=== PATIENT | male | born 1970 | race Caucasian/White ===

== ENCOUNTER 2017-04-23 15:33 | Emergency (ER) | payer SELFPAY ==
[~2017-04-23] VITALS: Ht 177.8 cm; Wt 83.2 kg
[~2017-04-23 15:33] MED LIST: NO HOME MEDS; PRILOSEC20 MG PO
[2017-04-23 16:21] VITALS: BP 130/88
== END 2017-04-23 15:56 | disposition left against medical advice (07) | DRG 607 ==
LOC: ED 15:33
DX: L98.9 Disorder of the skin and subcutaneous tissue, unspecified (principal); F17.210 Nicotine dependence, cigarettes, uncomplicated; Z91.19 Patient's noncompliance with other medical treatment and regimen

== ENCOUNTER 2018-05-09 22:03 | Emergency (ER) | payer SELFPAY ==
[~2018-05-09] VITALS: Ht 177.8 cm; Wt 86.0 kg
[2018-05-09] MEDS ORDERED: CEPHALEXIN500 M1 PO (23:16)
[2018-05-09] MEDS ORDERED: BACTRIM DS1 TAB PO (23:16)
[2018-05-10 00:10] VITALS: BP 145/99
== END 2018-05-10 00:10 | disposition home or self-care (01) | DRG 605 ==
LOC: ED 22:03
DX: S61.204A Unspecified open wound of right ring finger without damage to nail, initial encounter (principal); L08.9 Local infection of the skin and subcutaneous tissue, unspecified; B95.62 Methicillin resistant Staphylococcus aureus infection as the cause of diseases classified elsewhere; W26.8XXA Contact with other sharp object(s), not elsewhere classified, initial encounter; Y93.89 Activity, other specified; Y92.89 Other specified places as the place of occurrence of the external cause; F17.220 Nicotine dependence, chewing tobacco, uncomplicated

== ENCOUNTER 2018-05-10 20:44 | Emergency (ER) | payer SELFPAY ==
[~2018-05-10] VITALS: Ht 177.8 cm; Wt 86.3 kg
[~2018-05-10 20:44] MED LIST changes: +BACTRIM DS1 TAB PO; +CEPHALEXIN500 M1 PO
[2018-05-10 21:10] VITALS: BP 152/84
== END 2018-05-10 21:10 | disposition home or self-care (01) | DRG 950 ==
LOC: ED 20:44
DX: S61.234D Puncture wound without foreign body of right ring finger without damage to nail, subsequent encounter (principal); I10 Essential (primary) hypertension; W26.8XXD Contact with other sharp object(s), not elsewhere classified, subsequent encounter

== ENCOUNTER 2018-11-26 09:13 | Emergency (ER) | payer SELFPAY ==
[~2018-11-26] VITALS: Ht 175.3 cm; Wt 84.0 kg
[2018-11-26] MEDS ORDERED: CEPHALEXIN500 M1 PO (09:37)
[2018-11-26] MEDS ORDERED: BACTRIM DS1 TAB PO (09:37)
[2018-11-26 09:47] VITALS: BP 158/98
== END 2018-11-26 09:55 | disposition home or self-care (01) | DRG 603 ==
LOC: ED 09:13
DX: L03.115 Cellulitis of right lower limb (principal); I10 Essential (primary) hypertension

== ENCOUNTER 2018-12-08 10:12 | Emergency (ER) | payer SELFPAY ==
[~2018-12-08] VITALS: Ht 175.3 cm; Wt 90.0 kg
[2018-12-08 11:55] LABS: HEMATOCRIT 45.7 % (39.0-50.0); HEMOGLOBIN 15.3 g/dl (14.0-18.0); IMMATURE GRANULOCYTES 0.3 % (0.0-5.0); MEAN CELL VOLUME 93.5 fL CALC (80.0-100.0); MEAN CORPUSCULAR HGB 31.3 pG CALC (26.0-32.0); MEAN CORPUSCULAR HGB CONC 33.5 g/L CALC (32.0-36.0); NEUT# 4.91 thou/uL (1.82-7.42); RED BLOOD COUNT 4.89 mill/uL (4.70-6.10); RED CELL DISTRI WIDTH 13.3 % (11.5-15.5)
[2018-12-08 12:16] LABS: ALBUMIN 4.8 g/dL (3.2-5.0); ALKALINE PHOSPHATASE 96 u/l (38-126); ANION GAP 15 (6-22 (CALC)); BILIRUBIN, TOTAL 0.8 mg/dL (0.0-1.4); BUN 10 mg/dL (9-20); BUN/CREATININE RATIO 14 (12-20 (CALC)); CARBON DIOXIDE 28 mmol/l (22-30); CHLORIDE 99 mmol/l (95-108); CREATININE 0.7 mg/dL (0.7-1.3); GFR > 60 ML/MIN (>=60 (CALC)); GFR FOR AFR.AMER. > 60 ML/MIN (>=60 (CALC)); POTASSIUM 4.1 mmol/l (3.5-5.1); SGOT/AST 37 u/l (17-59); SODIUM 138 mmol/l (137-146); TOTAL PROTEIN 8.8 g/dL (6.3-8.2)
[2018-12-08] MEDS ORDERED: CLEOCIN300 MG PO (13:22)
[2018-12-08 13:29] VITALS: BP 155/85
[2018-12-09] MEDS ORDERED: HYDROCO/APAP1 TA9 PO (09:00)
== END 2018-12-08 13:40 | disposition home or self-care (01) | DRG 603 ==
LOC: ED 10:12
PROC: 0H9MXZZ Drainage of Right Foot Skin, External Approach (ICD-10-PCS; principal; 2018-12-08)
DX: L02.611 Cutaneous abscess of right foot (principal); I10 Essential (primary) hypertension

== ENCOUNTER 2018-12-09 08:25 | Emergency (ER) | payer SELFPAY ==
[~2018-12-09] VITALS: Ht 175.3 cm; Wt 75.0 kg
[2018-12-09 08:25] VITALS: BP 155/105
[~2018-12-09 08:25] MED LIST changes: +CLEOCIN300 MG PO
[2018-12-09] MEDS ORDERED: HYDROCO/APAP1 TA9 PO (09:00)
== END 2018-12-09 09:10 | disposition home or self-care (01) | DRG 951 ==
LOC: ED 08:25
DX: Z48.01 Encounter for change or removal of surgical wound dressing (principal); I10 Essential (primary) hypertension

== ENCOUNTER 2019-02-24 23:41 | Emergency (ER) | payer SELFPAY ==
[~2019-02-24] VITALS: Ht 175.3 cm; Wt 86.4 kg
[~2019-02-24 23:41] MED LIST changes: +HYDROCO/APAP1 TA9 PO
[2019-02-25 00:42] LABS: HEMATOCRIT 45.6 % (39.0-50.0); HEMOGLOBIN 15.5 g/dl (14.0-18.0); IMMATURE GRANULOCYTES 0.2 % (0.0-5.0); MEAN CELL VOLUME 95.2 fL CALC (80.0-100.0); MEAN CORPUSCULAR HGB 32.4 pG CALC (26.0-32.0); NEUT# 3.07 thou/uL (1.82-7.42); RED BLOOD COUNT 4.79 mill/uL (4.70-6.10); RED CELL DISTRI WIDTH 14.5 % (11.5-15.5)
[2019-02-25 01:05] LABS: ALBUMIN 4.3 g/dL (3.2-5.0); ALKALINE PHOSPHATASE 113 u/l (38-126); ANION GAP 15 (6-22 (CALC)); BILIRUBIN, TOTAL 0.7 mg/dL (0.0-1.4); BUN 7 mg/dL (9-20); BUN/CREATININE RATIO 12 (12-20 (CALC)); CARBON DIOXIDE 26 mmol/l (22-30); CHLORIDE 103 mmol/l (95-108); CREATININE 0.6 mg/dL (0.7-1.3); GFR > 60 ML/MIN (>=60 (CALC)); GFR FOR AFR.AMER. > 60 ML/MIN (>=60 (CALC)); POTASSIUM 4.2 mmol/l (3.5-5.1); SGOT/AST 42 u/l (17-59); SODIUM 140 mmol/l (137-146); TOTAL PROTEIN 8.2 g/dL (6.3-8.2)
[2019-02-25] MEDS ORDERED: PREDNISONE50 MG PO (02:30)
[2019-02-25] MEDS ORDERED: VENTOLIN HFA IN (02:30)
[2019-02-25 03:25] VITALS: BP 135/71
== END 2019-02-25 03:25 | disposition home or self-care (01) | DRG 203 ==
LOC: ED 23:41
PROVIDERS: Family Medicine
DX: J20.9 Acute bronchitis, unspecified (principal); I10 Essential (primary) hypertension; F17.290 Nicotine dependence, other tobacco product, uncomplicated

== ENCOUNTER 2020-02-19 13:44 | Emergency (ER) | payer SELFPAY ==
[~2020-02-19] VITALS: Ht 175.3 cm; Wt 86.5 kg
[~2020-02-19 13:44] MED LIST changes: +PREDNISONE50 MG PO; +VENTOLIN HFA IN
[2020-02-19] MEDS ORDERED: BACTROBAN TOP (15:49)
[2020-02-19] MEDS ORDERED: KEFLEX500 M1 PO (15:49)
[2020-02-19 16:00] VITALS: BP 153/94
== END 2020-02-19 16:00 | disposition home or self-care (01) | DRG 603 ==
LOC: ED 13:44
DX: L03.115 Cellulitis of right lower limb (principal); I10 Essential (primary) hypertension; F17.290 Nicotine dependence, other tobacco product, uncomplicated

== ENCOUNTER 2020-08-28 11:03 | Emergency (ER) | payer SELFPAY ==
[~2020-08-28] VITALS: Ht 175.3 cm; Wt 95.0 kg
[~2020-08-28 11:03] MED LIST changes: +BACTROBAN TOP; +KEFLEX500 M1 PO
[2020-08-28] MEDS ORDERED: CLINDAMYCIN300 M1 PO (11:31)
[2020-08-28 11:40] VITALS: BP 176/108
== END 2020-08-28 12:07 | disposition home or self-care (01) | DRG 159 ==
LOC: ED 11:03
PROC: 0CJY3ZZ Inspection of Mouth and Throat, Percutaneous Approach (ICD-10-PCS; principal; 2020-08-28)
DX: K04.7 Periapical abscess without sinus (principal); I10 Essential (primary) hypertension; F17.290 Nicotine dependence, other tobacco product, uncomplicated

== ENCOUNTER 2021-04-08 13:02 | Emergency (ER) | payer SELFPAY ==
[~2021-04-08] VITALS: Ht 175.3 cm; Wt 86.0 kg
[~2021-04-08 13:02] MED LIST changes: +CLINDAMYCIN300 M1 PO
[2021-04-08 13:45] LABS: HEMATOCRIT 49.3 % (39.0-50.0); HEMOGLOBIN 16.3 g/dl (14.0-18.0); IMMATURE GRANULOCYTES 0.2 % (0.0-5.0); MEAN CELL VOLUME 95.2 fL CALC (80.0-100.0); MEAN CORPUSCULAR HGB 31.5 pG CALC (26.0-32.0); MEAN CORPUSCULAR HGB CONC 33.1 g/dL CAL (32.0-36.0); NEUT# 3.04 thou/uL (1.82-7.42); RED BLOOD COUNT 5.18 mill/uL (4.70-6.10)
[2021-04-08 14:27] LABS: ALBUMIN 4.5 g/dL (3.2-5.0); ALKALINE PHOSPHATASE 104 u/l (38-126); ANION GAP 12 (6-22 (CALC)); BILIRUBIN, TOTAL 0.8 mg/dL (0.0-1.4); BUN 9 mg/dL (9-20); BUN/CREATININE RATIO 12 (12-20 (CALC)); CARBON DIOXIDE 28 mmol/l (22-30); CHLORIDE 100 mmol/l (95-108); CREATININE 0.8 mg/dL (0.7-1.3); GFR > 60 ML/MIN (>=60 (CALC)); GFR FOR AFR.AMER. > 60 ML/MIN (>=60 (CALC)); POTASSIUM 4.2 mmol/l (3.5-5.1); SGOT/AST 52 u/l (17-59); SODIUM 136 mmol/l (137-146); TOTAL PROTEIN 8.7 g/dL (6.3-8.2)
[2021-04-08 14:39] LABS: MYOGLOBIN 26 ng/mL (0 - 121)
[2021-04-08] MEDS ORDERED: CYCLOBENZAPRINE10 MG PO (14:53)
[2021-04-08] MEDS ORDERED: NAPROXEN500 MG PO (14:53)
[2021-04-08 15:25] VITALS: BP 166/99
[2021-04-08] MEDS ORDERED: CLONIDINE0.1 MG PO (15:31)
== END 2021-04-08 15:25 | disposition home or self-care (01) | DRG 552 ==
LOC: ED 13:02
PROVIDERS: Emergency Medicine
DX: M47.22 Other spondylosis with radiculopathy, cervical region (principal); I10 Essential (primary) hypertension; F17.200 Nicotine dependence, unspecified, uncomplicated; Z91.19 Patient's noncompliance with other medical treatment and regimen

== ENCOUNTER 2021-07-30 06:00 | Emergency (ER) | payer SELFPAY ==
[2021-07-30] VITALS (10 sets, daily range): BP systolic 141–170; BP diastolic 90–106
[~2021-07-30] VITALS: Ht 175.3 cm; Wt 84.0 kg
[~2021-07-30 06:00] MED LIST changes: +CLONIDINE0.1 MG PO; +CYCLOBENZAPRINE10 MG PO; +NAPROXEN500 MG PO
[2021-07-30 06:45] LABS: HEMATOCRIT 47.7 % (39.0-50.0); HEMOGLOBIN 15.6 g/dl (14.0-18.0); IMMATURE GRANULOCYTES 0.2 % (0.0-5.0); MEAN CELL VOLUME 96.2 fL CALC (80.0-100.0); MEAN CORPUSCULAR HGB 31.5 pG CALC (26.0-32.0); MEAN CORPUSCULAR HGB CONC 32.7 g/dL CAL (32.0-36.0); NEUT# 4.25 thou/uL (1.82-7.42); RED BLOOD COUNT 4.96 mill/uL (4.70-6.10)
[2021-07-30 07:03] LABS: ALBUMIN 4.2 g/dL (3.2-5.0); ALKALINE PHOSPHATASE 94 u/l (38-126); AMYLASE 84 u/l (30-110); ANION GAP 9 (6-22 (CALC)); BILIRUBIN, TOTAL 0.7 mg/dL (0.0-1.4); BUN 9 mg/dL (9-20); BUN/CREATININE RATIO 11 (12-20 (CALC)); CARBON DIOXIDE 30 mmol/l (22-30); CHLORIDE 104 mmol/l (95-108); CREATININE 0.8 mg/dL (0.7-1.3); GFR > 60 ML/MIN (>=60 (CALC)); GFR FOR AFR.AMER. > 60 ML/MIN (>=60 (CALC)); LIPASE 97 u/l (23-300); SGOT/AST 29 u/l (17-59); SODIUM 139 mmol/l (137-146); TOTAL PROTEIN 7.7 g/dL (6.3-8.2)
[2021-07-30 08:12] LABS: URINE BILIRUBIN - DIPSTICK NEGATIVE (NEGATIVE); URINE BLOOD DIPSTICK LARGE (NEGATIVE); URINE COLOR YELLOW; URINE GLUCOSE - DIPSTICK 100 mg/dL (NEGATIVE); URINE KETONE NEGATIVE (NEGATIVE); URINE LEUK ESTERASE NEGATIVE (NEGATIVE); URINE PH 5.5 (4.5-8.0); URINE PROTEIN - DIPSTICK 30 mg/dL (NEG-TRACE); URINE SPECIFIC GRAVITY 1.025; URINE UROBILINOGEN - DIPSTICK 0.2 E.U./dL (0.2)
[2021-07-30 08:14] LABS: URINE NITRITE - DIPSTICK NEGATIVE (Negative)
[2021-07-30 08:20] LABS: URINE CALCIUM OXALATE CRYSTALS FEW lpf; URINE RBC >100 RBC/hpf (0-5); URINE SQUAMOUS EPITHELIAL CELL FEW EPI/hpf (0-FEW); URINE TRANSITIONAL EPI. CELLS FEW hpf; URINE WBC 0-2 WBC/hpf (0-5)
[2021-07-30] MEDS ORDERED: HYDROCO/APAP1 TA9 PO (08:30)
[2021-07-30] MEDS ORDERED: ZOFRAN4 MG/TAB PO (08:30)
[2021-07-30] MEDS ORDERED: TAMSULOSIN0.4 MG PO (08:30)
== END 2021-07-30 08:43 | disposition home or self-care (01) | DRG 694 ==
LOC: ED 06:00
PROVIDERS: Family Medicine
DX: N13.30 Unspecified hydronephrosis (principal); N21.0 Calculus in bladder; I10 Essential (primary) hypertension

== ENCOUNTER 2022-03-10 09:30 | Emergency (ER) | payer SELFPAY ==
[~2022-03-10] VITALS: Ht 175.3 cm; Wt 83.0 kg
[2022-03-10] VITALS (7 sets, daily range): BP systolic 136–155; BP diastolic 80–97
[~2022-03-10 09:30] MED LIST changes: +TAMSULOSIN0.4 MG PO; +ZOFRAN4 MG/TAB PO
[2022-03-10] MEDS ORDERED: LOSARTAN POTAS100 MG PO (11:10)
[2022-03-10] MEDS ORDERED: LORTAB 1010 MG PO (11:54)
== END 2022-03-10 12:10 | disposition home or self-care (01) | DRG 566 ==
LOC: ED 09:30
DX: M25.461 Effusion, right knee (principal); S80.01XA Contusion of right knee, initial encounter; W20.8XXA Other cause of strike by thrown, projected or falling object, initial encounter

== ENCOUNTER 2023-11-21 14:38 | Emergency (ER) | payer SELFPAY ==
[~2023-11-21] VITALS: Ht 175.3 cm; Wt 68.0 kg
[~2023-11-21 14:38] MED LIST changes: +LORTAB 1010 MG PO; +LOSARTAN POTAS100 MG PO
[2023-11-21 14:43] VITALS: BP 155/96
[2023-11-21 14:45] VITALS: BP 150/90
[2023-11-21 15:00] VITALS: BP 146/89
[2023-11-21 15:15] VITALS: BP 145/89
[2023-11-21] MEDS ORDERED: DEXAMETHASONE SOD. PHOSPHATE 10 MG/ML VIAL IM ONE (15:25)
[2023-11-21 15:30] VITALS: BP 143/93
[2023-11-21] MEDS ORDERED: MEDDOSEPAK PO (15:31)
[2023-11-21 15:33] VITALS: BP 143/93
== END 2023-11-21 15:45 | disposition home or self-care (01) | DRG 866 ==
LOC: ED 14:38
DX: B34.9 Viral infection, unspecified (principal); I10 Essential (primary) hypertension; Z72.0 Tobacco use; Z20.822 Contact with and (suspected) exposure to COVID-19

== ENCOUNTER 2023-11-24 18:55 | Emergency (ER) | payer SELFPAY ==
[~2023-11-24] VITALS: Ht 175.3 cm; Wt 81.6 kg
[~2023-11-24 18:55] MED LIST changes: +MEDDOSEPAK PO
[2023-11-24 19:24] VITALS: BP 132/70
[2023-11-24 19:31] VITALS: BP 138/75
[2023-11-24 19:45] VITALS: BP 133/83
[2023-11-24 20:01] VITALS: BP 174/142
[2023-11-24] MEDS ORDERED: KETOROLAC TROMETHAMINE 30 MG/ML SDV IV ONE (20:05)
[2023-11-24] MEDS ORDERED: BUTALBITAL-APAP-CAFFEINE 50-325-40 TAB PO ONE (20:05)
[2023-11-24] MEDS ORDERED: METOCLOPRAMIDE HCL 10 MG/2 ML SDV IV ONE (20:05)
[2023-11-24 20:10] VITALS: BP 162/91
[2023-11-24] MEDS ORDERED: SODIUM CHLORIDE 0.9% 1,000 ML IV ONE ×2 (20:10)
[2023-11-24 20:15] VITALS: BP 160/93
[2023-11-24 20:26] LABS: BASO% 0.2 % (0-3); EOS% 0.1 % (0-8); HEMATOCRIT 42.4 % (39.0-50.0); HEMOGLOBIN 14.7 g/dl (14.0-18.0); IMMATURE GRANULOCYTES 0.1 % (0.0-5.0); LYMPH% 14.4 % (15-41); MEAN CORPUSCULAR HGB 30.7 pG CALC (26.0-32.0); MEAN CORPUSCULAR HGB CONC 34.7 g/dL CAL (32.0-36.0); MONO% 13.6 % (2-13); NEUT# 6.27 thou/uL (1.82-7.42); NEUT% 71.6 % (42-76); RED BLOOD COUNT 4.79 mill/uL (4.70-6.10); RED CELL DISTRI WIDTH 12.3 % (11.5-15.5)
[2023-11-24 20:27] LABS: MEAN CELL VOLUME 88.5 fL CALC (80.0-100.0)
[2023-11-24 20:38] LABS: ALBUMIN 4.2 g/dL (3.2-5.0); BILIRUBIN, TOTAL 2.1 mg/dL (0.2-1.3); CREATININE 0.8 mg/dL (0.7-1.3); POTASSIUM 3.8 mmol/l (3.5-5.1); TOTAL PROTEIN 7.6 g/dL (6.3-8.2)
[2023-11-24] MEDS ORDERED: ONDANSETRON HCl 4 MG/2 ML SDV IV ONE (23:10)
[2023-11-24] MEDS ORDERED: MORPHINE SULFATE 4 MG/ML VIAL IV ONE (23:10)
[2023-11-24] MEDS ORDERED: LISINOPRIL10 MG PO (23:54)
[2023-11-24] MEDS ORDERED: LOPRESSOR 550 MG/TAB PO (23:54)
[2023-11-25 00:14] LABS: CREATININE 0.8 mg/dL (0.7-1.3); POTASSIUM 3.2 mmol/l (3.5-5.1)
[2023-11-25] MEDS ORDERED: MAGNESIUM OXIDE 400 MG/TAB PO ONE (00:45)
[2023-11-25] MEDS ORDERED: POTASSIUM CHLORIDE 20 MEQ/TAB PO ONE (00:45)
[2023-11-25 01:37] VITALS: BP 129/78
[2023-11-25] MEDS ORDERED: ZOFRAN4 MG/TAB PO (01:38)
== END 2023-11-25 01:45 | disposition home or self-care (01) | DRG 103 ==
LOC: ED 18:55
PROVIDERS: Internal Medicine
DX: R51.9 Headache, unspecified (principal); E87.1 Hypo-osmolality and hyponatremia; I10 Essential (primary) hypertension; Z72.0 Tobacco use